=== PATIENT | female | born 1955 | race American Indian/Alaskan Native ===

== ENCOUNTER 2019-05-29 09:06 | Emergency (ER) | payer SELFPAY ==
[2019-05-29] MEDS ORDERED: cloNIDine 0.1 MG TAB PO ONE (09:26)
--- NOTE | 2019-05-29 09:29 | Emergency Department Report ---
ED General Adult HPI - General Chief complaint: High BP Stated complaint: BP HIGH, WITH TINGLING Time Seen by Provider: 05/29/19 09:22 Source: patient Mode of arrival: Ambulatory Limitations: No Limitations - History of Present Illness Initial comments: Patient is 63 years old female with history of hypothyroidism, noncompliant with her medication. Patient presented to the ER complaining of high blood pressure for the last week or so. Patient stated that she never been diagnosed with hypertension. She also stated that she was taking levothyroxine 100 MCG but she did not took her medicine for 1 year now. Patient also complaining of mild headache on and off for a week however patient denied any focal weakness, numbness or tingling sensation. Patient also denied any chest pain or shortness of breath. - Related Data Allergies Allergy/AdvReac Type Severity Reaction Status Date / Time clindamycin Allergy Hives Verified 05/29/19 09:09 ED Review of Systems ROS: Stated complaint: BP HIGH, WITH TINGLING Other details as noted in HPI Comment: All other systems reviewed and negative Constitutional: denies: chills, fever Respiratory: denies: cough, shortness of breath, SOB with exertion, wheezing Cardiovascular: denies: chest pain, palpitations Gastrointestinal: denies: abdominal pain, nausea Musculoskeletal: denies: back pain Neurological: headache (Mild). denies: weakness, numbness, paresthesias, confusion, abnormal gait ED Past Medical Hx - Past Medical History Additional medical history: THYROID - Surgical History Past Surgical History?: No - Social History Smoking Status: Never Smoker Substance Use Type: None ED Physical Exam - General Limitations: No Limitations General appearance: alert, in no apparent distress - Head Head exam: Present: atraumatic, normocephalic, normal inspection - Eye Eye exam: Present: normal appearance - ENT ENT exam: Present: normal exam, normal orophraynx, mucous membranes moist - Neck Neck exam: Present: normal inspection, full ROM. Absent: tenderness, meningismus, lymphadenopathy, thyromegaly - Respiratory Respiratory exam: Present: normal lung sounds bilaterally - Cardiovascular Cardiovascular Exam: Present: regular rate, normal rhythm, normal heart sounds - GI/Abdominal GI/Abdominal exam: Present: soft, normal bowel sounds. Absent: distended, tenderness, guarding, rebound, rigid, organomegaly, mass, bruit, pulsatile mass, hernia - Extremities Exam Extremities exam: Present: normal inspection, full ROM, normal capillary refill. Absent: calf tenderness - Back Exam Back exam: Present: normal inspection, full ROM. Absent: CVA tenderness (R), CVA tenderness (L) - Neurological Exam Neurological exam: Present: alert, oriented X3, CN II-XII intact, normal gait, reflexes normal. Absent: motor sensory deficit - Psychiatric Psychiatric exam: Present: normal mood - Skin Skin exam: Present: warm, intact, normal color ED Course Vital Signs 05/29/19 05/29/19 05/29/19 09:12 09:44 09:45 Temperature 98.9 F Pulse Rate 85 76 76 Respiratory 20 14 10 L Rate Blood Pressure 179/98 162/95 O2 Sat by Pulse 97 99 Oximetry 05/29/19 05/29/19 05/29/19 09:53 10:00 10:02 Temperature Pulse Rate 77 76 Respiratory 17 13 Rate Blood Pressure 155/94 155/94 O2 Sat by Pulse 98 99 Oximetry 05/29/19 05/29/19 05/29/19 10:15 10:30 10:47 Temperature Pulse Rate 77 73 Respiratory 12 14 14 Rate Blood Pressure 169/98 146/95 169/98 O2 Sat by Pulse 98 99 97 Oximetry 05/29/19 05/29/19 11:01 11:15 Temperature Pulse Rate 69 56 L Respiratory 17 13 Rate Blood Pressure 130/71 135/82 O2 Sat by Pulse 99 98 Oximetry ED Medical Decision Making - Lab Data Result diagrams: 05/29/19 09:34 05/29/19 09:34 - Medical Decision Making Patient is 63 years old female with history of hypothyroidism, noncompliant with her medication. Patient presented to the ER complaining of high blood pressure for the last week or so. Patient stated that she never been diagnosed with hypertension. She also stated that she was taking levothyroxine 100 MCG but she did not took her medicine for 1 year now. Patient also complaining of mild headache on and off for a week however patient denied any focal weakness, numbness or tingling sensation. Patient also denied any chest pain or shortness of breath. Patient received clonidine 0.1 mg. Patient current blood pressure is 135/82. Patient stated that she is feeling much better. Labs reviewed and is unremarkable except for significantly elevated TSH which is consistent with patient not compliant with her thyroid medicine. Patient given prescription for levothyroxine 100 MCG and advised to follow-up with primary care physician in the next 2 to 3 days and to return to the ER if she develop any new symptoms. Critical care attestation.: If time is entered above; I have spent that time in minutes in the direct care of this critically ill patient, excluding procedure time. ED Disposition Clinical Impression: Malignant hypertension, Hypothyroidism, Headache Disposition: - TO HOME OR SELFCARE Is pt being admited?: No Condition: Stable Instructions: Hypertension (ED), Hypothyroidism (ED) Referrals: PRIMARY CARE, [Primary Care Provider] - 3-5 Days [facility] [Provider Group] - 3-5 Days
[2019-05-29 10:02] LABS: Basophils # (Auto) 0.1 K/mm3 (0.0-0.1); Basophils % (Auto) 2.1 % (0.0-1.8); Eosinophils # (Auto) 0.1 K/mm3 (0.0-0.4); Eosinophils % (Auto) 2.7 % (0.0-4.3); Hematocrit 38.8 % (30.3-42.9); Hemoglobin 12.6 gm/dl (10.1-14.3); Lymphocytes % (Auto) 47.3 % (13.4-35.0); Mean Corpuscular HGB Conc 32 % (30-34); Mean Corpuscular Volume 78 fl (79-97); Monocytes # (Auto) 0.3 K/mm3 (0.0-0.8); Monocytes % (Auto) 6.7 % (0.0-7.3); Platelet Count 281 K/mm3 (140-440); Red Blood Count 4.99 M/mm3 (3.65-5.03); Red Cell Distribution Width 14.4 % (13.2-15.2)
[2019-05-29 10:17] LABS: Alanine Aminotransferase 10 units/L (7-56); Albumin 4.3 g/dL (3.9-5); BUN/Creatinine Ratio 13; Blood Urea Nitrogen 9 mg/dL (7-17); Calcium 9.4 mg/dL (8.4-10.2); Hemolysis Index 5
[2019-05-29 10:24] LABS: Free T4 (Free Thyroxine) 0.37 ng/dL (0.76-1.46)
[2019-05-29 11:05] LABS: Bilirubin,Urine NEG (Negative); Blood,Urine SM (Negative); Color,Urine Straw (Yellow); Protein,Urine <15 mg/dL mg/dL (Negative); Urobilinogen,Urine < 2.0 mg/dL (<2.0)
[2019-05-29 12:32] VITALS: BP 131/87
== END 2019-05-29 12:30 | disposition home or self-care (01) ==
LOC: ED 09:06
DX: I10 Essential (primary) hypertension (principal); E03.9 Hypothyroidism, unspecified; Z88.1 Allergy status to other antibiotic agents
CPT/HCPCS: 36415; 80053; 81001; 84439; 84443; 85025